=== PATIENT | female | born 1990 | race Caucasian/White ===

== ENCOUNTER 2019-03-18 23:39 | Emergency (ER) | payer MEDICAID ==
[~2019-03-18] VITALS: Ht 162.6 cm; Wt 54.0 kg
[~2019-03-18 23:39] MED LIST: DIVA1TAB58
[2019-03-19 00:19] LABS: Basophils # (auto) 0.1 uL; Eosinophils # (auto) 0.2 uL; Mean Corpuscular Hgb Conc. 34.5 g/dL (32.0-36.0); Mean Corpuscular Volume 102.4 fL (80.0-100.0); Neutrophils # (auto) 3.6 uL
[2019-03-19 00:21] LABS: Basophils % (auto) 0.8 % (0.0-2.0); Eosinophils % (auto) 2.9 % (0.0-7.0); Hematocrit 37.7 % (36.0-46.0); Lymphocytes # (auto) 2.6 uL; Lymphocytes % (auto) 35.8 % (10.0-50.0); Mean Corpuscular Hemoglobin 35.4 pg (28.0-32.0); Monocytes # (auto) 0.7 uL; Monocytes % (auto) 10.2 % (0.0-12.0); Neutrophils % (auto) 50.3 % (37.0-80.0); Platelet Count (auto) 225 10^3/uL (140-450); Red Blood Cells 3.68 10^6/uL (4.0-5.20); Red Cell Distribution Width 12.9 % (11.8-14.3); White Blood Cell 7.2 10^3/uL (4.4-10.8)
[2019-03-19 00:34] LABS: Potassium 3.3 mmol/L (3.5-5.1)
[2019-03-19 00:35] LABS: INR 0.93 (0.9-1.15); Partial Thromboplastin Time 26.1 sec (23.78-33.04)
[2019-03-19 00:37] LABS: Albumin 3.4 g/dL (3.4-5.0); Calcium 8.4 mg/dL (8.5-10.1)
[2019-03-19 00:42] LABS: BUN/Creatinine Ratio 11.3; Bilirubin, Total 0.3 mg/dL (0.2-1.0); Total Protein 6.9 g/dL (6.4-8.2)
[2019-03-19] MEDS ORDERED: POTASSIUM CHL 10% (20 MEQ/15ML) 15ml ORAL SOLN PO ONE (07:15)
[2019-03-19 08:13] VITALS: BP 144/71
[2019-03-19 08:33] LABS: Urine Bacteria NONE SEEN /hpf (None Seen); Urine Blood 2+ /uL (Negative); Urine Specific Gravity 1.006 (1.001-1.035); Urine WBC 2 /hpf (0 - 5)
== END 2019-03-19 08:14 | disposition home or self-care (01) ==
LOC: ER 23:47
DX: N92.0 Excessive and frequent menstruation with regular cycle (principal); F17.200 Nicotine dependence, unspecified, uncomplicated
CPT/HCPCS: 36415; 80053; 81001; 84702; 85025; 85610; 85730; 86850; 86900; 86901

== ENCOUNTER 2019-06-30 08:43 | Emergency (ER) | payer SELFPAY ==
[~2019-06-30] VITALS: Ht 154.9 cm; Wt 59.0 kg
[2019-06-30] MEDS ORDERED: LORazepam 0.5 MG TAB PO ONE (09:30)
[2019-06-30 09:35] LABS: Basophils # (auto) 0 uL; Eosinophils # (auto) 0.2 uL; Hematocrit 39.2 % (36.0-46.0); Hemoglobin 13.5 g/dL (12.2-16.2); Mean Corpuscular Hemoglobin 34.3 pg (28.0-32.0); Mean Corpuscular Hgb Conc. 34.5 g/dL (32.0-36.0); Monocytes # (auto) 0.9 uL; Neutrophils # (auto) 5.1 uL
[2019-06-30 09:37] LABS: Basophils % (auto) 0.6 % (0.0-2.0); Eosinophils % (auto) 2.3 % (0.0-7.0); Lymphocytes # (auto) 1.1 uL; Lymphocytes % (auto) 15.2 % (10.0-50.0); Mean Corpuscular Volume 99.6 fL (80.0-100.0); Monocytes % (auto) 12.6 % (0.0-12.0); Neutrophils % (auto) 69.3 % (37.0-80.0); Platelet Count (auto) 190 10^3/uL (140-450); Red Blood Cells 3.94 10^6/uL (4.0-5.20); Red Cell Distribution Width 13.1 % (11.8-14.3); Urine Pregnacy Test Negative (Negative); White Blood Cell 7.4 10^3/uL (4.4-10.8)
[2019-06-30 09:39] LABS: Urine Bacteria NONE SEEN /hpf (None Seen); Urine Blood Negative /uL (Negative); Urine Hyaline Cast FEW /lpf (0 - 2); Urine Mucus FEW (None Seen); Urine WBC 6 /hpf (0 - 5)
[2019-06-30 09:51] LABS: Albumin 3.9 g/dL (3.4-5.0); BUN/Creatinine Ratio 6.2; Calcium 9.1 mg/dL (8.5-10.1)
[2019-06-30 09:52] LABS: Alcohol, Urine < 3.0 mg/dL (0-5); Amphetamine Screen, Urine NEGATIVE (NEGATIVE); Barbiturate Scree,Urine NEGATIVE (NEGATIVE); Benzodiazephine Screen, Urine NEGATIVE (NEGATIVE); Cocaine Screen, Urine POSITIVE (NEGATIVE); Opiate Scree,Urine NEGATIVE (NEGATIVE); Phencyclidine Screen, Urine NEGATIVE (NEGATIVE)
[2019-06-30 09:53] LABS: Bilirubin, Total 0.7 mg/dL (0.2-1.0); Total Protein 7.5 g/dL (6.4-8.2)
[2019-06-30 09:56] LABS: Potassium 2.8 mmol/L (3.5-5.1)
[2019-06-30 09:59] LABS: Cannabinoid Screen, Urine POSITIVE (NEGATIVE)
[2019-06-30] MEDS ORDERED: POTASSIUM EFFERVESENT TAB 25 MEQ PO ONE (10:15)
[2019-06-30 11:00] VITALS: BP 116/73
== END 2019-06-30 11:36 | disposition home or self-care (01) ==
LOC: EDBD 08:43 → ER 08:50
DX: R56.9 Unspecified convulsions (principal); F17.210 Nicotine dependence, cigarettes, uncomplicated; F12.10 Cannabis abuse, uncomplicated
CPT/HCPCS: 36415; 70450; 80053; 80307; 81001; 81025; 85025; 93005

== ENCOUNTER 2020-05-25 14:25 | Emergency (ER) | payer MEDICAID, OTHER ==
[~2020-05-25] VITALS: Ht 165.1 cm; Wt 59.0 kg
[~2020-05-25 14:25] MED LIST changes: +MULT-1018 PO
[2020-05-25 15:18] LABS: Eosinophils # (auto) 0 10 ^3/uL (0-0.8); Eosinophils % (auto) 0.2 % (0.0-7.0); Lymphocytes # (auto) 1.1 10 ^3/uL (0.4-5.4); Monocytes # (auto) 0.4 10 ^3/uL (0-1.3); Nucleated Red Blood Cells % 0.1 %; Red Blood Cells 3.42 10^6/uL (4.0-5.20)
[2020-05-25 15:20] LABS: Basophils # (auto) 0.1 10 ^3/uL (0-0.2); Basophils % (auto) 0.7 % (0.0-2.0); Hematocrit 37.8 % (36.0-46.0); Hemoglobin 13.1 g/dL (12.2-16.2); Lymphocytes % (auto) 13.8 % (10.0-50.0); Mean Corpuscular Hemoglobin 38.3 pg (28.0-32.0); Mean Corpuscular Hgb Conc. 34.6 g/dL (32.0-36.0); Mean Corpuscular Volume 110.5 fL (80.0-100.0); Monocytes % (auto) 4.6 % (0.0-12.0); Neutrophils # (auto) 6.6 10 ^3/uL (1.6-8.6); Neutrophils % (auto) 80.7 % (37.0-80.0); Platelet Count (auto) 274 10^3/uL (140-450); White Blood Cell 8.1 10^3/uL (4.4-10.8)
[2020-05-25 15:25] LABS: Urine WBC None Seen /hpf (0 - 5)
[2020-05-25 15:31] LABS: Red Cell Distribution Width 20.3 % (11.8-14.3)
[2020-05-25 15:38] LABS: Urine Bacteria NONE SEEN /hpf (None Seen); Urine Blood 1+ /uL (Negative); Urine Hyaline Cast FEW /lpf (0 - 2); Urine Mucus FEW (None Seen); Urine Specific Gravity 1.014 (1.001-1.035)
[2020-05-25 15:39] LABS: Albumin 4.2 g/dL (3.4-5.0); BUN/Creatinine Ratio 8.2; Calcium 8.2 mg/dL (8.5-10.1); Potassium 3.6 mmol/L (3.5-5.1)
[2020-05-25 15:41] LABS: Bilirubin, Total 1.5 mg/dL (0.2-1.0); Total Protein 8.2 g/dL (6.4-8.2)
[2020-05-25] MEDS ORDERED: LORazepam 2MG/ML-1ML VIAL ONE (15:43)
[2020-05-25 15:48] LABS: Alcohol, Urine < 3.0 mg/dL (0-10); Amphetamine Screen, Urine NEGATIVE (NEGATIVE); Barbiturate Scree,Urine NEGATIVE (NEGATIVE); Benzodiazephine Screen, Urine NEGATIVE (NEGATIVE); Cannabinoid Screen, Urine POSITIVE (NEGATIVE); Cocaine Screen, Urine NEGATIVE (NEGATIVE); Opiate Scree,Urine NEGATIVE (NEGATIVE); Phencyclidine Screen, Urine NEGATIVE (NEGATIVE)
[2020-05-25 15:59] VITALS: BP 163/108
[2020-05-25] MEDS ORDERED: LORazepam 2MG/ML-1ML VIAL IV ONE (16:00)
[2020-05-25] MEDS ORDERED: SODIUM CHLORIDE 0.9% 1,000 ML IVB ONE (16:18)
[2020-05-25] MEDS ORDERED: VALPROATE INJ 500 MG in SODIUM CHL 0.9% 100 ML IV ONE (16:30)
[2020-05-25 17:41] LABS: Blood Alcohol < 3.0 mg/dL (0-5); Magnesium 1.6 mg/dL (1.6-2.6)
== END 2020-05-25 18:21 | disposition home or self-care (01) ==
LOC: ER 14:25 → EDBD 14:25 → ER 18:21
DX: G40.909 Epilepsy, unspecified, not intractable, without status epilepticus (principal); R79.89 Other specified abnormal findings of blood chemistry
CPT/HCPCS: 36415; 71045; 80053; 80164; 80307; 80320; 81001; 83735; 84702; 85025; 96365; 96375; 99284; J2060

== ENCOUNTER 2020-05-31 02:03 | Emergency (ER) | payer OTHER ==
[~2020-05-31] VITALS: Ht 160 cm; Wt 63.5 kg
[2020-05-31] MEDS ORDERED: diphenhdrAMINE HCL 50 MG/1 ML VL ONE (02:19)
[2020-05-31] MEDS ORDERED: LORazepam 2MG/ML-1ML VIAL ONE (02:19)
[2020-05-31] MEDS ORDERED: HALOPERIDOL LACTATE 5 MG/ML INJ VIAL ONE (02:19)
[2020-05-31] MEDS ORDERED: HALOPERIDOL LACTATE 5 MG/ML INJ VIAL IM ONE (02:30)
[2020-05-31] MEDS ORDERED: LORazepam 2MG/ML-1ML VIAL IV ONE (02:30)
[2020-05-31] MEDS ORDERED: diphenhdrAMINE HCL 50 MG/1 ML VL IV ONE (02:30)
[2020-05-31 02:58] LABS: Basophils # (auto) 0 10 ^3/uL (0-0.2); Eosinophils # (auto) 0 10 ^3/uL (0-0.8); Eosinophils % (auto) 0.7 % (0.0-7.0); Hemoglobin 12.1 g/dL (12.2-16.2); Lymphocytes # (auto) 1.6 10 ^3/uL (0.4-5.4); Mean Corpuscular Hgb Conc. 33.9 g/dL (32.0-36.0); Monocytes # (auto) 0.6 10 ^3/uL (0-1.3); Nucleated Red Blood Cells % 0.2 %; White Blood Cell 5.8 10^3/uL (4.4-10.8)
[2020-05-31 03:00] LABS: Basophils % (auto) 0.8 % (0.0-2.0); Hematocrit 35.6 % (36.0-46.0); Lymphocytes % (auto) 27.1 % (10.0-50.0); Mean Corpuscular Hemoglobin 38.8 pg (28.0-32.0); Mean Corpuscular Volume 114.7 fL (80.0-100.0); Monocytes % (auto) 10.8 % (0.0-12.0); Neutrophils # (auto) 3.5 10 ^3/uL (1.6-8.6); Neutrophils % (auto) 60.6 % (37.0-80.0); Platelet Count (auto) 302 10^3/uL (140-450); Red Blood Cells 3.11 10^6/uL (4.0-5.20)
[2020-05-31 03:13] LABS: Red Cell Distribution Width 20.6 % (11.8-14.3)
[2020-05-31 03:20] LABS: BUN/Creatinine Ratio 7.4; Calcium 8.8 mg/dL (8.5-10.1)
[2020-05-31 03:28] LABS: Bilirubin, Total 0.8 mg/dL (0.2-1.0); Total Protein 8.1 g/dL (6.4-8.2)
[2020-05-31 08:26] VITALS: BP 146/72
[2020-05-31] MEDS ORDERED: POTASSIUM EFFERVESENT TAB 25 MEQ PO ONE (08:45)
== END 2020-05-31 09:01 | disposition home or self-care (01) ==
LOC: EDBD 02:03 → ER 02:03
DX: G92 Toxic encephalopathy (principal); R41.82 Altered mental status, unspecified; R45.1 Restlessness and agitation
CPT/HCPCS: 36415; 70450; 80053; 80320; 84702; 85025; 96372; 96374; 96375; 99285; J1200; J1630; J2060

== ENCOUNTER 2021-01-11 00:55 | Inpatient (IN) | payer OTHER ==
[~2021-01-11] VITALS: Ht 162.6 cm; Wt 70.1 kg
[2021-01-11 03:36] LABS: Hemoglobin 12.6 g/dL (12.2-16.2); White Blood Cell 7.8 10^3/uL (4.4-10.8)
[2021-01-11 03:38] LABS: Hematocrit 35.5 % (36.0-46.0); Mean Corpuscular Hemoglobin 44.3 pg (28.0-32.0); Mean Corpuscular Hgb Conc. 35.4 g/dL (32.0-36.0); Mean Corpuscular Volume 125.3 fL (80.0-100.0); Platelet Count (auto) 155 10^3/uL (140-450); Red Blood Cells 2.83 10^6/uL (4.0-5.20); Red Cell Distribution Width 15.8 % (11.8-14.3)
[2021-01-11 03:49] LABS: Albumin 2.5 g/dL (3.4-5.0); Amylase 51 U/L (25-115); Anion Gap 11 (5-15); Blood Urea Nitrogen 2 mg/dL (7-18); Calcium 8.2 mg/dL (8.5-10.1); Carbon Dioxide 25 mmol/L (21-32); Chloride 103 mmol/L (98-107); Glucose 92 mg/dL (74-106); Lipase 138 U/L (73-393); Sodium 139 mmol/L (136-145)
[2021-01-11 03:51] LABS: Alanine Aminotransferase 41 U/L (13-56); Aspartate Aminotransferase 227 U/L (15-37); BUN/Creatinine Ratio 3.4; GFR African American 155 mL/min; GFR Non-African American 128 mL/min
[2021-01-11 03:56] LABS: Alkaline Phosphatase 219 U/L (45-117); Bilirubin, Total 9.1 mg/dL (0.2-1.0); Lactic Acid w/Reflex 3.2 mmol/L (0.4-2.0); Total Protein 6.9 g/dL (6.4-8.2)
[2021-01-11 04:12] LABS: Basophils % (manual) 0 (0.0-2.0); Blast Cells 0; Eosinophils % (manual) 0 (0-7); Myelocytes % 0; Promyelocytes % 0; Reactive Lymphocytes 0
[2021-01-11 04:19] LABS: Potassium 2.7 mmol/L (3.5-5.1)
[2021-01-11 04:20] LABS: INR 1.24 (0.9-1.15); Partial Thromboplastin Time 23.8 sec (23.0-31.2)
[2021-01-11 04:25] LABS: Band Neutrophils % (manual) 2; Lymphocytes % (manual) 35 (10.0-50.0); Metamyelocytes % 1; Monocytes % (manual) 14 (0-12)
[2021-01-11] MEDS ORDERED: POTASSIUM EFFERVESENT TAB 25 MEQ PO ONE (05:00)
[2021-01-11] MEDS ORDERED: ONDANSETRON HCL 4 MG/2 ML VIAL IV ONE (05:00)
[2021-01-11] MEDS ORDERED: POTASSIUM CHL 20MEQ/100ML 100 ML IV ONE (05:00)
[2021-01-11] MEDS ORDERED: diphenhdrAMINE HCL 50 MG/1 ML VL IV STA (06:58)
[2021-01-11 10:36] LABS: Urine Bacteria FEW /hpf (None Seen); Urine Blood Negative /uL (Negative); Urine Mucus FEW (None Seen); Urine Specific Gravity 1.012 (1.001-1.035); Urine WBC 4 /hpf (0 - 5)
[2021-01-11] MEDS ORDERED: LORazepam 2MG/ML-1ML VIAL IV PRN (14:00)
[2021-01-11] MEDS ORDERED: NITROGLYCERIN 0.4 MG SL TAB SL PRN (14:00)
[2021-01-11] MEDS ORDERED: MORPHINE SULF INJ 2 MG/ML SYRINGE 1ML IV PRN ×2 (14:00)
[2021-01-11] MEDS ORDERED: FOLIC ACID 1 MG TAB PO ONE (14:00)
[2021-01-11] MEDS ORDERED: ONDANSETRON HCL 4 MG/2 ML VIAL IV PRN (14:00)
[2021-01-11] MEDS: MULTIPLE VITAMIN TAB PO SCH (14:50)
[2021-01-11] MEDS: THIAMINE HCL 100 MG TAB PO SCH (14:50)
[2021-01-11] MEDS: chlordiazePOXIDE HCL 25 MG CAP PO SCH ×2 (18:00→23:52)
[2021-01-11] MEDS: SPIRONOLACTONE 25 MG TAB PO SCH (18:00)
[2021-01-11] MEDS: PROPRANOLOL HCL 20 MG TAB PO SCH (22:41)
[2021-01-12 04:37] VITALS: BP 108/52
[2021-01-12] MEDS: SPIRONOLACTONE 25 MG TAB PO SCH ×2 (05:57→18:49)
[2021-01-12] MEDS: chlordiazePOXIDE HCL 25 MG CAP PO SCH ×4 (05:57→23:44)
[2021-01-12 09:00] VITALS: BP 98/52
[2021-01-12] MEDS: PROPRANOLOL HCL 20 MG TAB PO SCH ×2 (10:00→21:51)
[2021-01-12] MEDS: FUROSEMIDE 20 MG/2 ML VIAL IV SCH (10:00)
[2021-01-12] MEDS ORDERED: VANCOMYCIN PER PHARMACY 0 MG IV SCH (10:45)
[2021-01-12] MEDS ORDERED: cefTRIAXone 1GM/50ML D5W 50 ML IV ONE (10:45)
[2021-01-12] MEDS ORDERED: POTASSIUM EFFERVESENT TAB 25 MEQ PO ONE (10:45)
[2021-01-12] MEDS: THIAMINE HCL 100 MG TAB PO SCH (11:07)
[2021-01-12] MEDS: MULTIPLE VITAMIN TAB PO SCH (11:07)
[2021-01-12 11:34] LABS: Mean Corpuscular Hgb Conc. 35.4 g/dL (32.0-36.0); White Blood Cell 5.1 10^3/uL (4.4-10.8)
[2021-01-12 11:36] LABS: Hematocrit 31.1 % (36.0-46.0); Mean Corpuscular Hemoglobin 44.9 pg (28.0-32.0); Mean Corpuscular Volume 126.7 fL (80.0-100.0); Platelet Count (auto) 116 10^3/uL (140-450); Red Blood Cells 2.45 10^6/uL (4.0-5.20); Red Cell Distribution Width 15.9 % (11.8-14.3)
[2021-01-12 11:46] LABS: Basophils % (manual) 0 (0.0-2.0); Blast Cells 0; Metamyelocytes % 0; Myelocytes % 0; Promyelocytes % 0; Reactive Lymphocytes 0
[2021-01-12] MEDS ORDERED: VANCOMYCIN 1GM/250ML 250 ML IV ONE (12:00)
[2021-01-12] MEDS ORDERED: FOLIC ACID 1 MG, MULTIPLE VITAMIN 10 ML, MAGNESIUM SULF SDV 50% 8 MEQ, THIAMINE INJ 100... INJ SCH ×5 (12:00)
[2021-01-12 12:06] LABS: Lactic Acid w/Reflex 2.2 mmol/L (0.4-2.0)
[2021-01-12 12:20] LABS: Band Neutrophils % (manual) 2; Eosinophils % (manual) 2 (0-7); Lymphocytes % (manual) 28 (10.0-50.0); Monocytes % (manual) 13 (0-12)
[2021-01-12] MEDS ORDERED: FOLIC ACID 1 MG, MAGNESIUM SULF SDV 50% 8 MEQ, THIAMINE INJ 100 MG in SODIUM CHLORIDE 0... INJ SCH (12:22)
[2021-01-12] MEDS: Ensure HIGH Protein Chocolate 8oz Bottle PO SCH ×2 (12:22→18:45)
[2021-01-12 13:00] VITALS: BP 112/61
[2021-01-12 16:53] VITALS: BP 98/66
[2021-01-12] MEDS: metroNIDAZOLE 500MG/100ML 100 ML IV SCH ×2 (16:58→21:50)
[2021-01-12 22:17] VITALS: BP 104/64
[2021-01-12] MEDS: VANCOMYCIN 1GM/250ML 250 ML IV SCH (23:44)
[2021-01-13 05:00] VITALS: BP 100/64
[2021-01-13] MEDS: metroNIDAZOLE 500MG/100ML 100 ML IV SCH (05:19)
[2021-01-13] MEDS: SPIRONOLACTONE 25 MG TAB PO SCH ×2 (05:19→18:34)
[2021-01-13] MEDS: chlordiazePOXIDE HCL 25 MG CAP PO SCH ×4 (05:19→23:47)
[2021-01-13 06:51] LABS: Hemoglobin 10.4 g/dL (12.2-16.2); Platelet Count (auto) 102 10^3/uL (140-450)
[2021-01-13 06:53] LABS: Hematocrit 29.3 % (36.0-46.0); Mean Corpuscular Hgb Conc. 35.6 g/dL (32.0-36.0); Mean Corpuscular Volume 126.4 fL (80.0-100.0); Red Blood Cells 2.32 10^6/uL (4.0-5.20); White Blood Cell 4.2 10^3/uL (4.4-10.8)
[2021-01-13 06:59] LABS: Basophils % (manual) 0 (0.0-2.0); Blast Cells 0; Eosinophils % (manual) 0 (0-7); Metamyelocytes % 0; Myelocytes % 0; Promyelocytes % 0; Reactive Lymphocytes 0
[2021-01-13 07:01] LABS: Albumin 2.1 g/dL (3.4-5.0); BUN/Creatinine Ratio 3.3; Calcium 8.8 mg/dL (8.5-10.1); Potassium 3.5 mmol/L (3.5-5.1)
[2021-01-13 07:03] LABS: Bilirubin, Total 11.2 mg/dL (0.2-1.0); Total Protein 5.7 g/dL (6.4-8.2)
[2021-01-13] MEDS: Ensure HIGH Protein Chocolate 8oz Bottle PO SCH ×3 (08:00→18:00)
[2021-01-13 08:21] VITALS: BP 102/70
[2021-01-13 09:03] LABS: Band Neutrophils % (manual) 8; Lymphocytes % (manual) 32 (10.0-50.0); Monocytes % (manual) 16 (0-12)
[2021-01-13] MEDS: PROPRANOLOL HCL 20 MG TAB PO SCH ×2 (10:00→22:15)
[2021-01-13] MEDS: FUROSEMIDE 20 MG/2 ML VIAL IV SCH (10:05)
[2021-01-13] MEDS: MULTIPLE VITAMIN TAB PO SCH (10:06)
[2021-01-13] MEDS: THIAMINE HCL 100 MG TAB PO SCH (10:06)
[2021-01-13] MEDS: cefTRIAXone 1GM/50ML D5W 50 ML IV SCH (10:07)
[2021-01-13] MEDS: VANCOMYCIN 1GM/250ML 250 ML IV SCH (12:30)
[2021-01-13 13:44] VITALS: BP 100/65
[2021-01-13 16:42] VITALS: BP 118/75
[2021-01-13 18:43] LABS: Amphetamine Screen, Urine NEGATIVE (NEGATIVE); Barbiturate Scree,Urine NEGATIVE (NEGATIVE); Benzodiazephine Screen, Urine POSITIVE (NEGATIVE); Cannabinoid Screen, Urine POSITIVE (NEGATIVE); Cocaine Screen, Urine NEGATIVE (NEGATIVE); Opiate Scree,Urine NEGATIVE (NEGATIVE); Phencyclidine Screen, Urine NEGATIVE (NEGATIVE)
[2021-01-13 22:00] VITALS: BP 110/71
[2021-01-13] MEDS ORDERED: TEMAZEPAM 15 MG CAP PO ONE (22:45)
[2021-01-14 00:26] LABS: Free T3 2.02 pg/mL (2.3-4.2); Free T4 (Free Thyroxine) 0.99 ng/dL (0.89-1.76)
[2021-01-14 04:49] VITALS: BP 122/78
[2021-01-14] MEDS: chlordiazePOXIDE HCL 25 MG CAP PO SCH (06:13)
[2021-01-14] MEDS: SPIRONOLACTONE 25 MG TAB PO SCH (06:13)
[2021-01-14 08:15] VITALS: BP 105/67
[2021-01-14 09:00] VITALS: BP 81/55
[2021-01-14] MEDS: cefTRIAXone 1GM/50ML D5W 50 ML IV SCH (09:00)
[2021-01-14] MEDS ORDERED: SPIR25TA PO (09:32)
[2021-01-14] MEDS ORDERED: PROP20TA73 PO (09:32)
[2021-01-14] MEDS ORDERED: PANT40TA2 PO (09:32)
[2021-01-14] MEDS ORDERED: THIA100T10 PO (09:32)
[2021-01-14] MEDS: MULTIPLE VITAMIN TAB PO SCH (09:44)
[2021-01-14] MEDS: PROPRANOLOL HCL 20 MG TAB PO SCH (09:44)
[2021-01-14] MEDS: THIAMINE HCL 100 MG TAB PO SCH (09:44)
[2021-01-14] MEDS: Ensure HIGH Protein Chocolate 8oz Bottle PO SCH (09:44)
[2021-01-14 10:49] VITALS: BP 105/67
== END 2021-01-14 11:50 | disposition home or self-care (01) | DRG 280 ==
LOC: ER 00:55 → EDBD 00:55 → TELE 13:52 → TELE-CENTR 01-12 04:12
PROVIDERS: ADMIT Nurse Practitioner Acute Care; ATTEND Internal Medicine
DX: K70.31 Alcoholic cirrhosis of liver with ascites (principal); E43 Unspecified severe protein-calorie malnutrition; E87.6 Hypokalemia; G40.909 Epilepsy, unspecified, not intractable, without status epilepticus; Z20.822 Contact with and (suspected) exposure to COVID-19; K76.0 Fatty (change of) liver, not elsewhere classified; D63.8 Anemia in other chronic diseases classified elsewhere; F10.120 Alcohol abuse with intoxication, uncomplicated; F17.210 Nicotine dependence, cigarettes, uncomplicated; Y90.8 Blood alcohol level of 240 mg/100 ml or more; F19.10 Other psychoactive substance abuse, uncomplicated; D69.6 Thrombocytopenia, unspecified; D75.89 Other specified diseases of blood and blood-forming organs; D68.4 Acquired coagulation factor deficiency; Z79.899 Other long term (current) drug therapy
CPT/HCPCS: 36415; 71250; 74176; 76705; 80053; 80164; 80307; 80320; 81001; 82140; 82150; 82247; 82565; 83605; 83690; 83735; 84439; 84443; 84481; 84484; 84702; 85007; 85027; 85610; 85730; 87040; 87086; 87426; 93970; 96365; 96366; 96375; G0378; J0696; J2405; J3480; J3490

== ENCOUNTER 2021-06-25 07:02 | Emergency (ER) | payer OTHER ==
[~2021-06-25] VITALS: Ht 162.6 cm; Wt 56.7 kg
[~2021-06-25 07:02] MED LIST changes: +PANT40TA2 PO; +PROP20TA73 PO; +SPIR25TA PO; +THIA100T10 PO
[2021-06-25] MEDS ORDERED: LORazepam 2MG/ML-1ML VIAL IV ONE (07:15)
[2021-06-25] MEDS ORDERED: SODIUM CHLORIDE 0.9% 1,000 ML IV ONE ×2 (07:15)
[2021-06-25 07:38] LABS: Eosinophils # (auto) 0.1 10 ^3/uL (0-0.8); Hematocrit 35.9 % (36.0-46.0); Hemoglobin 12.9 g/dL (12.2-16.2); Lymphocytes # (auto) 1.3 10 ^3/uL (0.4-5.4); Mean Corpuscular Hemoglobin 38.9 pg (28.0-32.0); Monocytes # (auto) 0.6 10 ^3/uL (0-1.3)
[2021-06-25 07:40] LABS: Basophils # (auto) 0 10 ^3/uL (0-0.2); Basophils % (auto) 0.7 % (0.0-2.0); Eosinophils % (auto) 2.7 % (0.0-7.0); Lymphocytes % (auto) 23.4 % (10.0-50.0); Mean Corpuscular Hgb Conc. 35.8 g/dL (32.0-36.0); Mean Corpuscular Volume 108.5 fL (80.0-100.0); Monocytes % (auto) 11.1 % (0.0-12.0); Neutrophils # (auto) 3.3 10 ^3/uL (1.6-8.6); Neutrophils % (auto) 62.1 % (37.0-80.0); Red Blood Cells 3.31 10^6/uL (4.0-5.20); Red Cell Distribution Width 13.5 % (11.8-14.3); White Blood Cell 5.4 10^3/uL (4.4-10.8)
[2021-06-25 08:03] LABS: Albumin 3.1 g/dL (3.4-5.0); Calcium 8.7 mg/dL (8.5-10.1); Potassium 3.4 mmol/L (3.5-5.1)
[2021-06-25 08:10] LABS: BUN/Creatinine Ratio 4.5; Bilirubin, Total 2.1 mg/dL (0.2-1.0); Total Protein 7.8 g/dL (6.4-8.2)
[2021-06-25 09:34] LABS: Urine WBC None Seen /hpf (0 - 5)
[2021-06-25 09:48] LABS: Urine Bacteria NONE SEEN /hpf (None Seen); Urine Blood Negative /uL (Negative); Urine Mucus FEW (None Seen); Urine Specific Gravity 1.006 (1.001-1.035)
[2021-06-25 10:37] LABS: Alcohol, Urine < 3.0 mg/dL (0-10); Amphetamine Screen, Urine NEGATIVE (NEGATIVE); Barbiturate Scree,Urine NEGATIVE (NEGATIVE); Benzodiazephine Screen, Urine NEGATIVE (NEGATIVE); Cannabinoid Screen, Urine POSITIVE (NEGATIVE); Cocaine Screen, Urine NEGATIVE (NEGATIVE); Opiate Scree,Urine NEGATIVE (NEGATIVE); Phencyclidine Screen, Urine NEGATIVE (NEGATIVE)
[2021-06-25 11:15] VITALS: BP 121/68
== END 2021-06-25 11:40 | disposition home or self-care (01) ==
LOC: EDBD 07:02 → ER 07:02
DX: G40.909 Epilepsy, unspecified, not intractable, without status epilepticus (principal); F17.210 Nicotine dependence, cigarettes, uncomplicated; F12.10 Cannabis abuse, uncomplicated; F14.10 Cocaine abuse, uncomplicated
CPT/HCPCS: 36415; 70450; 80053; 80307; 81001; 84484; 85025; 93005; 96361; 96374; 99285; J2060; J7030

== ENCOUNTER 2021-11-01 14:45 | Emergency (ER) | payer OTHER ==
[~2021-11-01] VITALS: Ht 162.6 cm; Wt 56.7 kg
[2021-11-01] MEDS ORDERED: LORazepam 2MG/ML-1ML VIAL ONE (16:11)
[2021-11-01 16:32] LABS: Basophils # (auto) 0 10 ^3/uL (0-0.2); Eosinophils # (auto) 0 10 ^3/uL (0-0.8); Eosinophils % (auto) 0.1 % (0.0-7.0); Hemoglobin 11.8 g/dL (12.2-16.2); Lymphocytes # (auto) 0.6 10 ^3/uL (0.4-5.4)
[2021-11-01 16:35] LABS: Basophils % (auto) 0.2 % (0.0-2.0); Hematocrit 35.3 % (36.0-46.0); Lymphocytes % (auto) 5.5 % (10.0-50.0); Mean Corpuscular Hemoglobin 36.8 pg (28.0-32.0); Mean Corpuscular Hgb Conc. 33.5 g/dL (32.0-36.0); Monocytes % (auto) 9.9 % (0.0-12.0); Neutrophils # (auto) 8.6 10 ^3/uL (1.6-8.6); Neutrophils % (auto) 84.3 % (37.0-80.0); Red Blood Cells 3.21 10^6/uL (4.0-5.20); Red Cell Distribution Width 18.6 % (11.8-14.3); White Blood Cell 10.2 10^3/uL (4.4-10.8)
[2021-11-01 16:41] LABS: Alanine Aminotransferase 87 U/L (13-56); Albumin 2.9 g/dL (3.4-5.0); Anion Gap 14 (5-15); Aspartate Aminotransferase 348 U/L (15-37); BUN/Creatinine Ratio 5.7; Blood Alcohol < 3.0 mg/dL (0-5); Blood Urea Nitrogen 4 mg/dL (7-18); Carbon Dioxide 26 mmol/L (21-32); Chloride 96 mmol/L (98-107); GFR African American 124 mL/min; GFR Non-African American 102 mL/min; Glucose 84 mg/dL (74-106); Potassium 3.1 mmol/L (3.5-5.1); Sodium 136 mmol/L (136-145)
[2021-11-01 16:44] LABS: Alkaline Phosphatase 243 U/L (45-117); Bilirubin, Total 13.2 mg/dL (0.2-1.0); Total Protein 6.6 g/dL (6.4-8.2)
[2021-11-01] MEDS ORDERED: LORazepam 2MG/ML-1ML VIAL IM ONE (16:45)
[2021-11-01 21:40] VITALS: BP 128/98
== END 2021-11-01 21:43 | disposition home or self-care (01) ==
LOC: EDBD 14:45 → ER 14:45
DX: G40.909 Epilepsy, unspecified, not intractable, without status epilepticus (principal); F17.210 Nicotine dependence, cigarettes, uncomplicated; F12.10 Cannabis abuse, uncomplicated; F14.10 Cocaine abuse, uncomplicated
CPT/HCPCS: 36415; 70450; 80053; 80320; 85025; 96365; 96372; 99284; J1953; J2060; J7060